=== PATIENT | female | born 1970 | race Caucasian/White ===

== ENCOUNTER 2021-07-16 07:49 | Emergency (ER) | payer OTHER ==
[~2021-07-16] VITALS: Ht 162.6 cm; Wt 95.3 kg
[2021-07-16 08:36] LABS: ABSOLUTE NEUTROPHILS 4.9 thou/uL (1.4-8.2); BASOPHILS 0.4 % (0.0-2.0); HEMATOCRIT 36.2 % (37.0-47.0); HEMOGLOBIN 12.5 gm/dL (12.0-15.0); LYMPHOCYTES 17.5 % (24.0-44.0); MCH 27.9 pg (26.0-34.0); MCHC 34.7 g/dL (28.0-37.0); MCV 80.6 fL (80.0-100.0); MONOCYTES 6.7 % (1.0-8.0); PLATELET COUNT 251 thou/uL (150-400); POLYS 73.4 % (36.0-66.0); RBC 4.49 mil/uL (4.20-5.00); RDW 14.2 % (10.5-14.5); WBC 6.6 thou/uL (4.0-11.0)
[2021-07-16 08:39] LABS: ANION GAP 11 mmol/L (7-16); BUN 11 mg/dL (7-18); CALCIUM 8.3 mg/dL (8.5-10.1); CHLORIDE 108 mmol/L (98-107); CO2 25 mmol/L (21-32); CREATININE 0.9 mg/dL (0.6-1.0); GLUCOSE 94 mg/dL (74-106); POTASSIUM 3.6 mmol/L (3.5-5.1); SODIUM 144 mmol/L (136-145)
[2021-07-16 08:50] LABS: ALBUMIN 3.4 g/dL (3.4-5.0); LIPASE 91 U/L (73-393); SGOT 23 U/L (15-37); SGPT 33 U/L (14-59); TOTAL BILIRUBIN 0.2 mg/dL (0.2-1.0); TOTAL PROTEIN 6.7 g/dL (6.4-8.2)
[2021-07-16 09:22] LABS: URINE BILIRUBIN NEGATIVE (Negative); URINE BLOOD 2+ (Negative); URINE CLARITY CLEAR; URINE COLOR YELLOW; URINE GLUCOSE-RANDOM* NEGATIVE (Negative); URINE KETONES NEGATIVE (Negative); URINE LEUKOCYTES-REFLEX TRACE (Negative); URINE NITRITE-REFLEX NEGATIVE (Negative); URINE PROTEIN (DIPSTICK) NEGATIVE (Negative); URINE SPECIFIC GRAVITY 1.025 (1.005-1.035); URINE UROBILINOGEN 0.2 E.U./dl (0.2-1.0)
[2021-07-16 09:45] LABS: CASTS None Seen /LPF (None Seen); SQUAMOUS 4-10 Moderate /LPF (0-3)
[2021-07-16 09:46] LABS: CRYSTALS None Seen /LPF (None Seen)
[2021-07-16 09:55] VITALS: BP 145/82
--- NOTE | 2021-07-17 07:29 | EKG ---
[place] [address] [facility] [place] [address] ELECTROCARDIOGRAM REPORT Name: LUAN JENKINS Room [facility] [id number] Admission: 07/16/21 Attend Phys: Discharge: 07/16/21 Date of : 74 Report #: [id number] [facility] ED Test Date: 2021-07-16 Test Time: 08:09:41 Pat Name: LUAN JENKINS Department: Room: Gender: F Quick Service Technician: LANDRY : 1970 Requested By: Navi Estrada Order Number: [id number] MD: Germán Irizarry Measurements Intervals [place] Rate: 79 P: 49 PA: 134 QRS: -1 QRSD: 97 T: 2 QT: 398 QTc: 457 Interpretive Statements Sinus rhythm Abnormal R-wave progression, early transition No previous ECG available for comparison Electronically Signed On 07-17-2021 7:29:17 PRODUCTION STAGE MANAGER by Germán Irizarry [email or web address] <ELECTRONICALLY SIGNED> By: Germán Irizarry MD, [facility] 07/17/21 [id number] [id number] Germán Irizarry MD, FACC /EPI
== END 2021-07-16 09:56 | disposition home or self-care (01) ==
LOC: ER 07:49
PROVIDERS: Emergency Medicine
DX: K80.80 Other cholelithiasis without obstruction (principal); Z98.890 Other specified postprocedural states